=== PATIENT | female | born 1995 | race Caucasian/White ===

== ENCOUNTER → 2016-08-06 | Outpatient (CLI) | payer BC, OTHER | LOC: LABWHC1 11:11 | PROVIDERS: ATTEND Obstetrics & Gynecology | DX: Z34.90 Encounter for supervision of normal pregnancy, unspecified, unspecified trimester (principal); Z3A.00 Weeks of gestation of pregnancy not specified | CPT/HCPCS: 36415; 82950 ==

== ENCOUNTER 2016-10-05 15:00 | Outpatient (CLI) | payer BC, OTHER ==
[2016-10-05 15:57] VITALS: BP 136/68; PULSE 123; RESP 18; TEMP 96.5
[2016-10-05 15:57] LABS: Appearance,Urine Turbid (Clear); Bilirubin,Urine Negative (Negative); Calcium Oxalate Crystals,Urine Occasional /hpf; Glucose,Urine (UA) 3+ (Negative); Ketones,Urine Trace (Negative); Leukocyte Esterase,Urine Large (Negative); Mucus,Urine Few /hpf; Nitrite,Urine Negative (Negative); PH, Urine 5.5 (5.0-8.0); Particle Count 48622; Protein,Urine 1+ (Negative); RBC,Urine 12 /hpf (0-5); Specific Gravity,Urine 1.025 (1.001-1.035); Squamous Epithelial Cell,Urine 47 /hpf (0-4); UA Billing (MACRO vs. MICRO) MICRO; Urobilinogen,Urine <2.0 mg/dL (<2.0); WBC,Urine >182 /hpf (0-5)
== END 2016-10-05 17:05 | disposition home or self-care (01) ==
LOC: FBPOP 15:00
PROVIDERS: ATTEND Obstetrics & Gynecology
DX: O23.43 Unspecified infection of urinary tract in pregnancy, third trimester (principal); Z3A.35 35 weeks gestation of pregnancy
CPT/HCPCS: 59025; 81001; 87086; 99213

== ENCOUNTER 2016-10-18 20:05 | Outpatient (CLI) | payer BC, OTHER ==
[2016-10-18 20:51] VITALS: BP 134/79; PULSE 100; RESP 16; TEMP 96.1
== END 2016-10-18 20:40 | disposition home or self-care (01) ==
LOC: FBPOP 20:05
PROVIDERS: ATTEND Obstetrics & Gynecology
DX: O36.8130 Decreased fetal movements, third trimester, not applicable or unspecified (principal); Z3A.37 37 weeks gestation of pregnancy
CPT/HCPCS: 59025; 99213

== ENCOUNTER 2016-10-21 12:30 | Outpatient (CLI) | payer BC, OTHER ==
[2016-10-21] MEDS ORDERED: LACTATED RINGERS 1,000 ML IV SCH (14:30)
[2016-10-21 15:09] LABS: Appearance,Urine Cloudy (Clear); Bacteria,Urine Rare /hpf; Bilirubin,Urine Negative (Negative); Glucose,Urine (UA) Negative (Negative); Ketones,Urine Negative (Negative); Leukocyte Esterase,Urine Large (Negative); Mucus,Urine Few /hpf; Nitrite,Urine Negative (Negative); Particle Count 9680; Protein,Urine Trace (Negative); RBC,Urine <1 /hpf (0-5); Specific Gravity,Urine 1.011 (1.001-1.035); Squamous Epithelial Cell,Urine 4 /hpf (0-4); UA Billing (MACRO vs. MICRO) MICRO; WBC,Urine 16 /hpf (0-5)
== END 2016-10-21 15:40 | disposition home or self-care (01) ==
LOC: FBPOP 12:30
PROVIDERS: ATTEND Obstetrics & Gynecology
DX: O26.93 Pregnancy related conditions, unspecified, third trimester (principal); Z3A.37 37 weeks gestation of pregnancy
CPT/HCPCS: 59025; 81001; 84450; 84460; 84550; 85025; 87086; 96360; 96361; 99215

== ENCOUNTER → 2016-10-22 | Outpatient (CLI) | payer BC, OTHER | LOC: LABWHC1 16:32 → EDSTATUS 16:34 | PROVIDERS: ATTEND Obstetrics & Gynecology | DX: O10.011 Pre-existing essential hypertension complicating pregnancy, first trimester (principal); Z3A.00 Weeks of gestation of pregnancy not specified | CPT/HCPCS: 36415; 81050; 82575; 84156 ==

== ENCOUNTER → 2016-10-25 | Outpatient (CLI) | payer BC, OTHER | END | disposition home or self-care (01) | LOC: LABWHC1 17:16 | PROVIDERS: ATTEND Obstetrics & Gynecology | DX: O26.899 Other specified pregnancy related conditions, unspecified trimester (principal); Z3A.00 Weeks of gestation of pregnancy not specified | CPT/HCPCS: 36415; 82239 ==

== ENCOUNTER 2016-10-28 10:28 | Inpatient (IN) | payer BC, OTHER ==
[2016-10-28] MEDS ORDERED: CARBOPROST TROMETHAMINE 250 MCG/ML 1 ML AMP IM PRN (10:37)
[2016-10-28] MEDS ORDERED: LIDOCAINE 1% (PF) 10 MG/ML (30 ML SDV) SQ PRN (10:37)
[2016-10-28] MEDS ORDERED: METHYLERGONOVINE 0.2 MG/ML 1 ML AMP IM PRN (10:37)
[2016-10-28] MEDS ORDERED: OXYTOCIN 10 UNIT/ML 1 ML VIAL IM PRN (10:37)
[2016-10-28] MEDS ORDERED: TERBUTALINE 1 MG/ML VIAL SQ PRN (10:37)
[2016-10-28 10:47] VITALS: BMI 30.9
[2016-10-28 10:56] LABS: Basophils # (A) 0.1 k/uL (0-0.2); Basophils % (A) 0 %; CH 27.6; CHCM 34.4; Eosinophils # (A) 0.2 k/uL (0-0.7); Eosinophils % (A) 1 %; HDW 4.25; HGB 11.3 gm/dL (11.4-16.0); Hypochromasia Slight; Luc # (Auto) 0.36; Luc % (Auto) 2; Lymphocytes % (A) 12 %; MCH 27.6 pg (25.0-35.0); MCHC 34.3 g/dL (31.0-37.0); MCV 80.5 fL (80.0-100.0); Mean Platelet Volume 7.7; Monocytes # (A) 0.9 k/uL (0-1.0); Monocytes % (A) 6 %; Neutrophils # (A) 12.7 k/uL (1.3-7.7); Neutrophils % (A) 78 %; Poikilocytosis Moderate; RBC 4.09 m/uL (3.80-5.40); RDW 13.8 % (11.5-15.5); WBC 16.2 k/uL (4.0-11.0); WBC (Perox) 16.94
[2016-10-28] MEDS: LACTATED RINGERS 1,000 ML IV SCH ×2 (10:58→16:38)
[2016-10-28 11:07] LABS: INR 0.9 (<1.1); Prothrombin Time 9.4 sec (9.0-12.0)
[2016-10-28 11:08] LABS: Uric Acid 3.2 mg/dL (3.7-7.4)
[2016-10-28] MEDS: OXYTOCIN 20 UNITS/1000 ML NS 1,000 ML IV SCH (11:09)
[2016-10-28 11:38] LABS: Appearance,Urine Cloudy (Clear); Bacteria,Urine Rare /hpf; Bilirubin,Urine Negative (Negative); Glucose,Urine (UA) 2+ (Negative); Ketones,Urine Negative (Negative); Leukocyte Esterase,Urine Moderate (Negative); Mucus,Urine Few /hpf; Nitrite,Urine Negative (Negative); Particle Count 8534; Protein,Urine 1+ (Negative); RBC,Urine 1 /hpf (0-5); Specific Gravity,Urine 1.018 (1.001-1.035); Squamous Epithelial Cell,Urine 4 /hpf (0-4); UA Billing (MACRO vs. MICRO) MICRO; Urobilinogen,Urine <2.0 mg/dL (<2.0); WBC,Urine 5 /hpf (0-5)
--- NOTE | 2016-10-28 12:17 | P.HPOB ---
History of Present Illness H&P Date: 10/28/16 Chief Complaint: Headache this morning, visual changes, decreased movement , itching al This is a 21-year-old white female 1 para 0 EDC 9 11/09/2016 at 38-2/7 weeks' gestation. Patient presented to the office today for her routine obstetrical visit, complaining of intense itching all over the body. I have scheduled her for fasting bile acids earlier in the week, blood drawn was performed the patient was not fasting. In addition, she had a headache this morning which is improved, she has visual changes, and overall is feeling nauseated and not well. She also reports decreased movement. Blood pressure in the office was 160/100, patient was sent for direct admission. Obstetrical history: Blood type is O+, rubella status immune, group B strep cultures negative. Hepatitis B surface antigen, HIV testing, VDRL, urine screen , gonorrhea and chlamydia cultures all negative. One hour Glucola elevated, 3 hour GTT within normal limits. Social history patient is single, she works at a local nursing facility. She is not a smoker. Past medical history is significant for ovarian cysts and kidney infection in the past. Past surgical history is negative. Current medications vitamins daily. ALLERGIES include doxycycline to which she reports emesis. On exam this is a pleasant white female, 5 foot 5 inches, 186 pounds, blood pressure on admission 143/87, pulse 109, patient is afebrile. The general physical exam reveals 1-2+ peripheral edema, 3+ reflexes. The chest is clear in all zhang. The cervix is 1 cm dilated, 50% effaced, anterior, moderate, -2 station, vertex. Artificial amniorrhexis reveals clear fluid. heart rate is consistent with reactive NST. Labs include normal liver function studies, 1+ protein, normal platelet count, PT and PTT. Impression: 38-2/7 weeks intrauterine , early preeclampsia. Cannot rule out cholestasis of . Plan: Oxytocin augmentation per hospital protocol. Epidural would be a staton choice 1 and if patient is agreeable. Most maternal and surveillance. Consider magnesium sulfate pending progress of labor, blood pressure at this time is 120/79. Anticipate normal spontaneous vaginal delivery. Review of Systems Constitutional: Reports as per HPI Past Medical History Additional Past Medical History / Comment(s): kidney infection, UTI History of Any Multi-Drug Resistant Organisms: None Reported Past Surgical History: No Surgical Hx Reported Past Anesthesia/Blood Transfusion Reactions: No Reported Reaction Past Psychological History: No Psychological Hx Reported Smoking Status: Never smoker Past Alcohol Use History: Occasional Past Drug Use History: None Reported - Past Family History Father Family Medical History: Hypertension Medications and Allergies Home Medications Medication Instructions Recorded Confirmed Type Sik-Yejg-Ipfib Acid 1 cap PO DAILY 05/13/16 10/21/16 History [-U Capsule (formulary)] Allergies Allergy/AdvReac Type Severity Reaction Status Date / Time No Known Allergies Allergy Verified 10/28/16 10:34 Exam - Vital Signs Vital signs: Vital Signs Temp Pulse Resp BP Pulse Ox 10/28/16 10:43 97.3 F L 109 H 16 143/87 98 Intake and Output 10/27/16 10/28/16 10/28/16 22:59 06:59 14:59 Other: Weight 84.368 kg Patient Weight 10/29/16 06:59 Weight 84.368 kg See dictated exam under HPI please Results Result Diagrams: 10/28/16 10:40 Abnormal Lab Results - Last 24 Hours (Table) 10/28/16 10/28/16 10/28/16 Range/Units 10:40 10:40 10:40 WBC 16.2 H (4.0-11.0) k/uL Hgb 11.3 L (11.4-16.0) gm/dL Hct 33.0 L (34.0-46.0) % Neutrophils # 12.7 H (1.3-7.7) k/uL APTT 21.0 L (22.0-30.0) sec Uric Acid 3.2 L (3.7-7.4) mg/dL Urine Appearance (Clear) Urine Protein (Negative) Urine Glucose (UA) (Negative) Urine Blood (Negative) Ur Leukocyte Esterase (Negative) Urine Bacteria (None) /hpf Urine Mucus (None) /hpf 10/28/16 Range/Units 11:00 WBC (4.0-11.0) k/uL Hgb (11.4-16.0) gm/dL Hct (34.0-46.0) % Neutrophils # (1.3-7.7) k/uL APTT (22.0-30.0) sec Uric Acid (3.7-7.4) mg/dL Urine Appearance Cloudy H (Clear) Urine Protein 1+ H (Negative) Urine Glucose (UA) 2+ H (Negative) Urine Blood Trace H (Negative) Ur Leukocyte Esterase Moderate H (Negative) Urine Bacteria Rare H (None) /hpf Urine Mucus Few H (None) /hpf Assessment and Plan Plan: Close maternal and surveillance. Consideration of magnesium sulfate pending clinical progress and blood pressure. Epidural to be placed when and if patient is agreeable. Anticipate normal spontaneous vaginal delivery. Oxytocin per hospital protocol. Time with Patient: Greater than 30
[2016-10-28] MEDS ORDERED: BUTORPHANOL 1 MG/ML 1 ML VIAL IV PRN (12:27)
[2016-10-28] MEDS ORDERED: BUPIVACAINE (PF) 0.25% 25 ML, fentaNYL (PF) 200 MCG in SODIUM CHLORIDE 0.9% 71 ML EPIDURAL ONE (15:30)
[2016-10-28] MEDS ORDERED: ePHEDrine 50 MG/ML 1 ML AMP ONE (16:06)
[2016-10-28] MEDS ORDERED: fentaNYL (PF) 50 MCG/ML 5 ML AMP ONE ×2 (16:06→21:46)
[2016-10-28] MEDS ORDERED: BUPIVACAINE (PF) 0.25% 30 ML VIAL ONE ×2 (16:06→21:46)
[2016-10-28] MEDS ORDERED: SODIUM CHLORIDE 0.9% 100 ML BAG ONE ×2 (16:06→21:46)
[2016-10-28] MEDS ORDERED: CITRIC ACID-SODIUM CITRATE 15 ML CUP PO ONE (21:26)
[2016-10-28] MEDS ORDERED: ceFAZolin 2 GM in SODIUM CHLORIDE 0.9% 100 ML IVPB ONE (21:26)
[2016-10-28] MEDS ORDERED: ESMOLOL 100 MG/10 ML VIAL ONE (21:46)
[2016-10-28] MEDS ORDERED: KETOROLAC 30 MG/ML 1 ML VIAL ONE (21:46)
[2016-10-28] MEDS ORDERED: OXYTOCIN 10 UNIT/ML 1 ML VIAL ONE (21:46)
[2016-10-28] MEDS ORDERED: SODIUM BICARB 8.4% 50 ML SYR (1 MEQ/ML) ONE (21:46)
[2016-10-28] MEDS ORDERED: ONDANSETRON 4 MG/2 ML VIAL ONE (21:46)
[2016-10-28] MEDS ORDERED: diphenhydrAMINE 25 MG CAP PO PRN (22:37)
[2016-10-28] MEDS ORDERED: ONDANSETRON 4 MG/2 ML VIAL IVP PRN (22:37)
[2016-10-28] MEDS ORDERED: NALOXONE 0.4 MG/ML 1 ML VIAL IV PRN (22:37)
[2016-10-28] MEDS ORDERED: IBUPROFEN 600 MG TAB PO PRN (22:37)
[2016-10-28] MEDS ORDERED: diphenhydrAMINE 50 MG CAP PO PRN (22:37)
[2016-10-28] MEDS ORDERED: ZOLPIDEM 5 MG TAB PO PRN (22:37)
[2016-10-28] MEDS ORDERED: diphenhydrAMINE 50 MG/ML 1 ML VIAL IVP PRN ×2 (22:37)
[2016-10-28] MEDS ORDERED: KETOROLAC 30 MG/ML 1 ML VIAL IVP PRN (22:37)
[2016-10-28] MEDS ORDERED: METOCLOPRAMIDE 5 MG/ML 2 ML VIAL IVP PRN (22:37)
[2016-10-28] MEDS ORDERED: ACETAMINOPHEN TAB 325 MG TAB PO PRN (22:37)
--- NOTE | 2016-10-28 22:37 | P.OP ---
Date of Procedure: 10/28/16 Preoperative Diagnosis: Arrest of dilatation and descent Postoperative Diagnosis: Right occiput transverse position Procedure(s) Performed: Primary low transverse section Implants: Anesthesia: epidural Surgeon: Ct Grover [employer] [address] Sql Developer #1: Seth Novoa Estimated Blood Loss (ml): 600 IV fluids (ml): 600 Urine output (ml): 300 Pathology: other (Placenta) Condition: stable Disposition: PACU Indications for Procedure: Patient progressed through labor up to 3 cm dilatation. Station was quite high , asynclitism was suspected. Patient declined further labor and requested C- section. heart tones were reassuring. Operative Findings: Right occiput transverse position, liveborn male infant, 8 lbs. 4 oz. or 3750 g Description of Procedure: Patient is brought to the operating suite where the previously placed epidural was topped off per the anesthesia staff. She's placed in the dorsal supine position with left lateral uterine displacement. The abdomen was prepped and draped in the usual sterile fashion. 2 g of Ancef were given. The appropriate timeout was performed to assure proper patient and procedural identification. The analgesia was checked and noted to be adequate. A low transverse skin incision was made and this was carried down to the subcutaneous tissue that was approximately 2 cm in depth. The fascia is isolated, scored and extended bilaterally with curved Geiger scissors. The peritoneum is next identified and incised, there is no bowel or bladder involvement. The bladder blade is placed over the dome of the bladder. A low transverse uterine incision is made in this is carried down through the myometrium into the endometrial cavity. It is extended with blunt dissection. The infant is delivered in the right occiput transverse position. There is no nuchal cord noted. The oropharynx, nasopharynx and external nares were all bulb suctioned on the abdomen. Patient is officially delivered of a liveborn male at 2200 hours. The infant is handed to waiting nurses for evaluation where scores of 8 and 9 at one and 5 minutes respectively are given. Infant weighed 3750 g or 8 lbs. 4 oz. The placenta was delivered manually, it was inspected and noted to be intact with trivascular cord. The uterus is then externalized. The edges of the incision are grasped with Hylton clamps. The uterus is swept clean with a sterile sponge to avoid any retained products of conception. The uterus is closed in a two-step fashion , first layer running locking, second layer imbricated. Excellent reapproximation is noted. The abdomen is then suctioned with suction on guard. The uterus is gently placed back into the abdominal cavity. Bilateral gutters are inspected and cleaned. The uterus is once again noted to be hemostatically intact. Please note that bilateral tubes and ovaries are normal to inspection, no uterine defects or fibroids are noted. The peritoneum was allowed to close by secondary intention. The fascia is closed in a running stitch using 0 Vicryl suture with over ligation in the midline. Subcutaneous tissue is irrigated, noted to be clean and dry. It is reapproximated with 3-0 Vicryl in a running fashion. 4-0 undyed Vicryl issues for final skin closure. Steri-Strips and Mastisol are applied to the wound. Dressing is applied. Uterus is massaged. All sponge needle and enhancement counts are correct at the end of the procedure. Patient is brought back to the recovery room in very good condition with stable vital signs including blood pressure 110/64, pulse 102, 98% O2 saturation. Patient is requesting circumcision for her son.
[2016-10-28] MEDS: HYDROmorphone PCA 5 MG/25 ML SYRINGE IV PRN (22:55)
[2016-10-29] MEDS: LACTATED RINGERS 1,000 ML IV SCH ×3 (01:09→22:28)
--- NOTE | 2016-10-29 07:38 | P.PN ---
Subjective Principal diagnosis: Postoperative day #1 Objective - Vital Signs Vital signs: Vital Signs Temp 97.9 F 10/29/16 03:29 Pulse 84 10/29/16 03:29 Resp 14 10/29/16 03:29 BP 116/61 10/29/16 03:29 Pulse Ox 100 10/29/16 03:29 Intake & Output 10/28/16 10/29/16 10/29/16 18:59 06:59 18:59 Intake Total 2000 Output Total 1250 Balance 750 Weight 84.368 kg Intake: IV 600 Intake, IV Titration 1400 Amount Lactated Ringers 1,000 ml 1000 @ 125 mls/hr IV .Q8H SHUN Rx#:[id number] Oxytocin 20 Units/1000 ml 400 Ns 1,000 ml @ 1 MILLIUNIT/MIN 3 mls/hr IV .Q24H SHUN Rx#:[id number] Output: Urine 650 Uretheral (Fletcher) 200 Estimated Blood Loss 600 Other: Voiding Method Indwelling Catheter - Constitutional General appearance: Present: average body habitus, cooperative - EENT Eyes: Present: PERRLA ENT: Present: hearing grossly normal - Respiratory Respiratory: bilateral: CTA - Cardiovascular Rhythm: regular - Gastrointestinal Gastrointestinal Comment(s): Fundus firm, midline, symmetric, 18 week size. Incision is clean and dry, well approximated, intact. General gastrointestinal: Present: normal bowel sounds - Integumentary Integumentary: Present: normal - Neurologic Neurologic: Present: CNII-XII intact - Musculoskeletal Musculoskeletal: Present: gait normal - Psychiatric Psychiatric: Present: A&O x's 3, appropriate affect, intact judgment & insight - Labs CBC & Chem 7: 10/28/16 10:40 Labs: Abnormal Lab Results - Last 24 Hours (Table) 10/28/16 10/28/16 10/28/16 Range/Units 10:40 10:40 10:40 WBC 16.2 H (4.0-11.0) k/uL Hgb 11.3 L (11.4-16.0) gm/dL Hct 33.0 L (34.0-46.0) % Neutrophils # 12.7 H (1.3-7.7) k/uL APTT 21.0 L (22.0-30.0) sec Uric Acid 3.2 L (3.7-7.4) mg/dL Urine Appearance (Clear) Urine Protein (Negative) Urine Glucose (UA) (Negative) Urine Blood (Negative) Ur Leukocyte Esterase (Negative) Urine Bacteria (None) /hpf Urine Mucus (None) /hpf 10/28/16 Range/Units 11:00 WBC (4.0-11.0) k/uL Hgb (11.4-16.0) gm/dL Hct (34.0-46.0) % Neutrophils # (1.3-7.7) k/uL APTT (22.0-30.0) sec Uric Acid (3.7-7.4) mg/dL Urine Appearance Cloudy H (Clear) Urine Protein 1+ H (Negative) Urine Glucose (UA) 2+ H (Negative) Urine Blood Trace H (Negative) Ur Leukocyte Esterase Moderate H (Negative) Urine Bacteria Rare H (None) /hpf Urine Mucus Few H (None) /hpf Assessment and Plan Plan: Continue postoperative care. Circumcision on her now. Possible discharge home tomorrow. Time with Patient: Less than 30
[2016-10-29 07:43] LABS: Basophils % (A) 0 %; CH 27.5; CHCM 33.9; Eosinophils # (A) 0.1 k/uL (0-0.7); Eosinophils % (A) 0 %; HCT 25.2 % (34.0-46.0); Hypochromasia Slight; Luc # (Auto) 0.28; Luc % (Auto) 2; Lymphocytes # (A) 1.5 k/uL (1.0-4.8); Lymphocytes % (A) 8 %; MCH 27.5 pg (25.0-35.0); MCHC 33.9 g/dL (31.0-37.0); MCV 81.2 fL (80.0-100.0); Monocytes # (A) 0.9 k/uL (0-1.0); Monocytes % (A) 5 %; Neutrophils # (A) 15.3 k/uL (1.3-7.7); Neutrophils % (A) 85 %; Poikilocytosis Moderate; RBC 3.11 m/uL (3.80-5.40); RDW 13.9 % (11.5-15.5); WBC 18.1 k/uL (4.0-11.0); WBC (Perox) 19.62
[2016-10-29 07:45] LABS: HGB 8.6 gm/dL (11.4-16.0)
[2016-10-29] MEDS: HYDROmorphone PCA 5 MG/25 ML SYRINGE IV PRN (08:00)
[2016-10-29] MEDS: SENNOSIDES-DOCUSATE SODIUM 1 EACH TAB PO SCH ×2 (11:01→20:23)
[2016-10-29] MEDS: Acetaminophen-Codeine 300-30mg TAB PO PRN ×2 (16:25→20:22)
[2016-10-29] MEDS: OXYTOCIN 20 UNITS/1000 ML NS 1,000 ML IV SCH (22:27)
[2016-10-30] MEDS: Acetaminophen-Codeine 300-30mg TAB PO PRN ×3 (01:11→11:11)
[2016-10-30 08:15] VITALS: BP 133/88; PULSE 94; RESP 16; TEMP 98.2
[2016-10-30] MEDS: SENNOSIDES-DOCUSATE SODIUM 1 EACH TAB PO SCH (08:16)
--- NOTE | 2016-10-30 09:40 | P.DS ---
Providers Date of admission: 10/28/16 10:28 Expected date of discharge: 10/30/16 Attending physician: Ct [facility] Course: This is a 21-year-old white female 1 para 0 EDC 11/09/2016 at 38-2/7 weeks' gestation. Patient presented to the hospital from my office with an initial blood pressure of 160/100. She complained of headache, visual changes, decreased movement, and overall feeling of malaise. Please see my dictated history and physical for details. was essentially unremarkable, rubella status immune, group B strep cultures negative, blood type O positive. She was admitted, artificial amniorrhexis revealed clear fluid, and oxytocin augmentation was started. Patient had arrest of dilatation and descent and decision was made for primary low transverse section after approximately 12-14 hours of hard labor. Epidural had been placed per her request. Option was given for rest through the night with restart of oxytocin in the morning which the patient declined. She underwent a low-transverse section and gave to a liveborn male with scores of 8 and 9 at one and 5 minutes respectively. weighed 3750 g or 8 lbs. 4 oz. Patient's blood pressure stabilized nicely after the epidural, magnesium sulfate was not deemed necessary. Please see my dictated operative note for details. The patient has done well in the postoperative period. Blood pressures have normalized, 110 to 120s over 70s. She denies headache, visual changes or right upper quadrant pain. Fundus is firm and in the midline, symmetric and 18 week size. Incision is clean and dry, intact, Steri-Strips applied over subcuticular stitch. Extremities reveal 1+ edema. Reflexes have normalized at 2+. has been circumcised. Breast-feeding is going well. Patient is being discharged home at this point in very good condition. She is reminded to call me with any fevers shakes or chills, foul smelling or copious lochia, with the passage of large blood clots, with any difficulties breast- feeding, with any pain not alleviated by Advil at home, or indeed with any concerns. She will use Advil, 2 pills every 8-12 hours as needed for pain. No intercourse, we've reviewed briefly the options for contraception which she will consider. She will continue taking her vitamin daily. No driving for 2 weeks, no heavy lifting, no intercourse tampons or douching. will follow-up with airplane fueler as recommended. Patient Condition at Discharge: Good Plan - Discharge Summary New Discharge Prescriptions: No Action Irw-Mjlz-Jyjer Acid [-U Capsule (formulary)] 1 cap PO DAILY Discharge Medication List Aor-Zgqh-Jpxzk Acid [-U Capsule (formulary)] 1 cap PO DAILY [History] Follow up Appointment(s)/Referral(s): Ct Grover MD [STAFF PHYSICIAN] - 2 Weeks Discharge Disposition: HOME SELF-CARE
== END 2016-10-30 11:45 | disposition home or self-care (01) | DRG 766 ==
LOC: 4FBP 10:28
PROVIDERS: ADMIT Obstetrics & Gynecology; ATTEND Obstetrics & Gynecology
PROC: 10907ZC Drainage of Amniotic Fluid, Therapeutic from Products of Conception, Via Natural or Artificial Opening (ICD-10-PCS; 2016-10-28)
PROC: 3E033VJ Introduction of Other Hormone into Peripheral Vein, Percutaneous Approach (ICD-10-PCS; 2016-10-28)
PROC: 3E0S3NZ Introduction of Analgesics, Hypnotics, Sedatives into Epidural Space, Percutaneous Approach (ICD-10-PCS; 2016-10-28)
PROC: 10D00Z1 Extraction of Products of Conception, Low, Open Approach (ICD-10-PCS; principal; 2016-10-28 22:00)
DX: O14.94 Unspecified pre-eclampsia, complicating childbirth (principal); O32.8XX0 Maternal care for other malpresentation of fetus, not applicable or unspecified; O62.1 Secondary uterine inertia; O61.0 Failed medical induction of labor; O62.0 Primary inadequate contractions; O36.8130 Decreased fetal movements, third trimester, not applicable or unspecified; Z3A.38 38 weeks gestation of pregnancy; Z82.49 Family history of ischemic heart disease and other diseases of the circulatory system; Z37.0 Single live birth; Z88.1 Allergy status to other antibiotic agents; Z87.440 Personal history of urinary (tract) infections; Z86.19 Personal history of other infectious and parasitic diseases; Z87.448 Personal history of other diseases of urinary system; Z87.42 Personal history of other diseases of the female genital tract
CPT/HCPCS: 81001; 84450; 84460; 84550; 85025; 85610; 85730; 86850; 86900; 86901; 88307

== ENCOUNTER 2016-11-24 17:17 | Emergency (ER) | payer BC, OTHER ==
[2016-11-24 17:29] VITALS: BP 134/72; PULSE 78; RESP 20; TEMP 98
--- NOTE | 2016-11-24 18:17 | ED ---
Recheck HPI - General Chief Complaint: Recheck/Abnormal Lab/Rx Stated Complaint: post op infection Time Seen by Provider: 11/24/16 17:50 Source: patient, RN notes reviewed Mode of arrival: ambulatory Limitations: no limitations - History of Present Illness Initial Comments: Patient is a 21-year-old female presents to the emergency room for reevaluation of postop incision. Patient states that she had a section about a month ago. Patient states that her last visit with her MEDICAL ESTHETICIAN was on 11/15/16. Patient states that today she noticed that the wound slightly opened and draining small amounts of white fluid. Patient denies any pain. Patient denies fevers or chills. Patient denies nausea or vomiting. Patient states that her told her to come in to have the area evaluated. Patient denies any specific injury or trauma to her abdomen recently. - Related Data Home Medications Medication Instructions Recorded Confirmed Cdj-Cusm-Oeluh Acid 1 cap PO DAILY 05/13/16 11/24/16 [-U Capsule (formulary)] Allergies Allergy/AdvReac Type Severity Reaction Status Date / Time No Known Allergies Allergy Verified 11/24/16 18:09 Review of Systems ROS Statement: Those systems with pertinent positive or pertinent negative responses have been documented in the HPI. ROS Other: All systems not noted in ROS Statement are negative. Past Medical History Additional Past Medical History / Comment(s): kidney infection, UTI History of Any Multi-Drug Resistant Organisms: None Reported Past Surgical History: Section Past Anesthesia/Blood Transfusion Reactions: No Reported Reaction Past Psychological History: No Psychological Hx Reported Smoking Status: Never smoker Past Alcohol Use History: Occasional Past Drug Use History: None Reported - Past Family History Father Family Medical History: Hypertension General Exam - General Exam Comments Initial Comments: Sitting in exam room, no acute distress. Limitations: no limitations General appearance: alert, in no apparent distress Head exam: Present: atraumatic, normocephalic, normal inspection Eye exam: Present: normal appearance ENT exam: Present: normal exam Neck exam: Present: normal inspection Respiratory exam: Present: normal lung sounds bilaterally. Absent: respiratory distress Cardiovascular Exam: Present: regular rate, normal rhythm, normal heart sounds GI/Abdominal exam: Present: soft, other (8 inch healing insicion from , small amount of serous fluid from mid incision site. No surrounding erythema noted. ). Absent: distended, tenderness, guarding, rebound, rigid Extremities exam: Present: normal inspection Back exam: Present: normal inspection Neurological exam: Present: alert, oriented X3, CN II-XII intact, normal gait Psychiatric exam: Present: normal affect, normal mood Skin exam: Present: warm, dry, intact, normal color. Absent: rash Course Vital Signs 11/24/16 17:27 Temperature 98.0 F Pulse Rate 78 Respiratory 20 Rate Blood Pressure 134/72 O2 Sat by Pulse 100 Oximetry Medical Decision Making - Medical Decision Making Patient is a 21-year-old female presents to the emergency room for evaluation of postop incision. Patient states she noticed that a few areas of incision is opened and small amounts of white fluid draining. Patient denies any pain, fevers, chills. Patient states her MEDICAL ESTHETICIAN is Dr. Grover. no signs of infection noted at the incision site. Pelvis serous fluid noted draining. Culture pending. Case discussed with Dr. Ojeda who also evaluated patient. Patient advised to follow-up with Dr. Grover. Patient states she understands everything that was discussed with her. Return parameters discussed. Disposition Clinical Impression: Encounter for wound re-check Disposition: HOME SELF-CARE Condition: Good Instructions: Acute Wound Care (ED), Wound Healing and Your Diet (ED) Additional Instructions: Clean area with antibacterial soap and water. Please follow-up with Dr. Grover tomorrow for reevaluation. If any new symptom arises, symptoms worsen or fever develops, return to ER as soon as possible. Referrals: Behzad Samson MD [Primary Care Provider] - 1-[address] Gro[address] MD [STAFF PHYSICIAN] - 1-2 days Time of Disposition: 18:42
== END 2016-11-24 18:54 | disposition home or self-care (01) ==
LOC: EC 17:17
DX: Z48.816 Encounter for surgical aftercare following surgery on the genitourinary system (principal)
CPT/HCPCS: 87070; 87077; 87186; 87205; 99283

== ENCOUNTER 2017-08-09 15:46 | Emergency (ER) | payer BC, OTHER ==
[2017-08-09] MEDS ORDERED: ONDANSETRON 4 MG/2 ML VIAL IVP STA (16:16)
[2017-08-09] MEDS ORDERED: SODIUM CHLORIDE 0.9% 1,000 ML IV ONE (16:17)
[2017-08-09] MEDS ORDERED: SODIUM CHLORIDE 0.9% 1,000 ML IV SCH (16:30)
[2017-08-09 16:38] LABS: Appearance,Urine Clear (Clear); Bilirubin,Urine Negative (Negative); Blood,Urine Small (Negative); Color,Urine Yellow; Glucose,Urine (UA) Negative (Negative); Ketones,Urine Negative (Negative); Leukocyte Esterase,Urine Negative (Negative); Mucus,Urine Many /hpf; Nitrite,Urine Negative (Negative); Protein,Urine 1+ (Negative); RBC,Urine 3 /hpf (0-5); Specific Gravity,Urine 1.028 (1.001-1.035); Squamous Epithelial Cell,Urine 2 /hpf (0-4); WBC,Urine 1 /hpf (0-5)
[2017-08-09 16:47] LABS: Basophils # (A) 0.1 k/uL (0-0.2); Basophils % (A) 1 %; Eosinophils # (A) 0.4 k/uL (0-0.7); Eosinophils % (A) 5 %; HCT 41.2 % (34.0-46.0); HGB 13.9 gm/dL (11.4-16.0); Lymphocytes # (A) 1.2 k/uL (1.0-4.8); Lymphocytes % (A) 15 %; MCH 25.6 pg (25.0-35.0); MCHC 33.8 g/dL (31.0-37.0); MCV 75.8 fL (80.0-100.0); Mean Platelet Volume 7.2; Microcytosis Slight; Monocytes # (A) 0.4 k/uL (0-1.0); Monocytes % (A) 5 %; Neutrophils # (A) 5.8 k/uL (1.3-7.7); Neutrophils % (A) 73 %; Platelet Count 318 k/uL (150-450); RBC 5.44 m/uL (3.80-5.40); RDW 14.4 % (11.5-15.5)
[2017-08-09] MEDS ORDERED: KETOROLAC 30 MG/ML 1 ML VIAL IVP STA (16:53)
[2017-08-09 17:02] LABS: ALT 33 U/L (9-52); AST 31 U/L (14-36); Albumin 4.1 g/dL (3.5-5.0); Alkaline Phosphatase 102 U/L (38-126); Anion Gap 12 mmol/L; Blood Urea Nitrogen 10 mg/dL (7-17); Calcium 9.2 mg/dL (8.4-10.2); Carbon Dioxide 24 mmol/L (22-30); Chloride 106 mmol/L (98-107); Glucose 91 mg/dL (74-99); Potassium 3.8 mmol/L (3.5-5.1); Sodium 142 mmol/L (137-145); Total Bilirubin 0.7 mg/dL (0.2-1.3); Total Protein 7.1 g/dL (6.3-8.2)
--- NOTE | 2017-08-09 17:06 | ED ---
Female Urogenital HPI - General Chief complaint: Vaginal Bleeding Stated complaint: Vaginal Bleeding Time Seen by Provider: 08/09/17 16:03 Source: patient, RN notes reviewed, old records reviewed Mode of arrival: ambulatory Limitations: no limitations - History of Present Illness Initial comments: This is a 21-year-old female presents emergency Department chief complaint of increased vaginal bleeding for the past day. She 2 days of spotting prior to this. Patient states that she's never had this heavy menstrual cycle. She also reports that she's had some nausea and feels generally ill. Patient states that she has had one episode of vomiting prior to arriving to emergency department. She did have a beep proximally 9 months ago. Patient states that she has been having a productive soft. She does question if she could've an a miscarriage. Patient states that she's never had this heavy bleeding. She states that she was going through one tampon an hour prior to arrival. Last Menstrual Period: 07/15/17 - Related Data Home Medications Medication Instructions Recorded Confirmed Ibuprofen [Motrin Ib] 400 mg PO Q6H PRN 08/09/17 08/09/17 Previous Rx's Medication Instructions Recorded Ibuprofen [Motrin] 600 mg PO Q8HR PRN #30 tab 08/09/17 Ondansetron Odt [Zofran Odt] 4 mg PO Q12HR PRN #12 tab 08/09/17 Allergies Allergy/AdvReac Type Severity Reaction Status Date / Time No Known Allergies Allergy Verified 08/09/17 16:28 Review of Systems ROS Statement: Those systems with pertinent positive or pertinent negative responses have been documented in the HPI. ROS Other: All systems not noted in ROS Statement are negative. Past Medical History Additional Past Medical History / Comment(s): kidney infection, UTI History of Any Multi-Drug Resistant Organisms: None Reported Past Surgical History: Section Past Anesthesia/Blood Transfusion Reactions: No Reported Reaction Past Psychological History: No Psychological Hx Reported Smoking Status: Never smoker Past Alcohol Use History: Occasional Past Drug Use History: None Reported - Past Family History Father Family Medical History: Hypertension General Exam - General Exam Comments Initial Comments: This is a 21-year-old female. No acute distress. Limitations: no limitations General appearance: alert, in no apparent distress Head exam: Present: atraumatic, normocephalic, normal inspection Eye exam: Present: normal appearance, PERRL, EOMI. Absent: scleral icterus, conjunctival injection, periorbital swelling ENT exam: Present: normal exam, mucous membranes moist Neck exam: Present: normal inspection. Absent: tenderness, meningismus, lymphadenopathy Respiratory exam: Present: normal lung sounds bilaterally. Absent: respiratory distress, wheezes, rales, rhonchi, stridor Cardiovascular Exam: Present: regular rate, normal rhythm, normal heart sounds. Absent: systolic murmur, diastolic murmur, rubs, gallop, clicks GI/Abdominal exam: Present: soft, tenderness (Suprapubic tenderness. Evidence of section scar.), normal bowel sounds. Absent: distended, guarding, rebound, rigid External exam: Present: normal external exam Speculum exam: Present: vaginal bleeding (no clots or significant bleeding noted. ). Absent: normal speculum exam Extremities exam: Present: normal inspection, full ROM, normal capillary refill. Absent: tenderness, pedal edema, joint swelling, calf tenderness Back exam: Present: normal inspection Neurological exam: Present: alert, oriented X3, CN II-XII intact Psychiatric exam: Present: normal affect, normal mood Skin exam: Present: warm, dry, intact, normal color. Absent: rash Course Vital Signs 08/09/17 08/09/17 15:59 18:06 Temperature 98.3 F 98.2 F Pulse Rate 103 H 99 Respiratory 20 18 Rate Blood Pressure 148/74 132/75 O2 Sat by Pulse 98 99 Oximetry Medical Decision Making - Medical Decision Making This is a 21-year-old female presents emergency Department chief complaint of increased vaginal bleeding for the past day. She 2 days of spotting prior to this. Patient states that she's never had this heavy menstrual cycle. She also reports that she's had some nausea and feels generally ill. Patient has suprapubic tenderness. Patient given IV fluids and labs obtained. CBC isnormal. Normal UA. Patient is not . Patient has bleeding noted during speculum exam, no clots. Patient given nausea medication and toradol. US shows normal pelvis, normal adnexa. Patient informed of Tx for dysfunctional uterine bleeding. Discussed follow up with HEALTH DATA ADMINISTRATOR. Patient is following up with Dr. Grover. All questions answered and return parameters discussed. - Lab Data Result diagrams: 08/09/17 16:37 08/09/17 16:37 Lab Results 08/09/17 08/09/17 08/09/17 Range/Units 16:21 16:21 16:37 WBC 8.0 (4.0-11.0) k/uL RBC 5.44 H (3.80-5.40) m/uL Hgb 13.9 (11.4-16.0) gm/dL Hct 41.2 (34.0-46.0) % MCV 75.8 L (80.0-100.0) fL MCH 25.6 (25.0-35.0) pg MCHC 33.8 (31.0-37.0) g/dL RDW 14.4 (11.5-15.5) % Plt Count 318 (150-450) k/uL Neutrophils % 73 % Lymphocytes % 15 % Monocytes % 5 % Eosinophils % 5 % Basophils % 1 % Neutrophils # 5.8 (1.3-7.7) k/uL Lymphocytes # 1.2 (1.0-4.8) k/uL Monocytes # 0.4 (0-1.0) k/uL Eosinophils # 0.4 (0-0.7) k/uL Basophils # 0.1 (0-0.2) k/uL Microcytosis Slight Sodium (137-145) mmol/L Potassium (3.5-5.1) mmol/L Chloride (98-107) mmol/L Carbon Dioxide (22-30) mmol/L Anion Gap mmol/L BUN (7-17) mg/dL Creatinine (0.52-1.04) mg/dL Est GFR (CKD-EPI)AfAm (>60 ml/min/1.73 sqM) Est GFR (CKD-EPI)NonAf (>60 ml/min/1.73 sqM) Glucose (74-99) mg/dL Calcium (8.4-10.2) mg/dL Total Bilirubin (0.2-1.3) mg/dL AST (14-36) U/L ALT (9-52) U/L Alkaline Phosphatase (38-126) U/L Total Protein (6.3-8.2) g/dL Albumin (3.5-5.0) g/dL Urine Color Yellow Urine Appearance Clear (Clear) Urine pH 7.0 (5.0-8.0) Ur Specific [place] 1.028 (1.001-1.035) Urine Protein 1+ H (Negative) Urine Glucose (UA) Negative (Negative) Urine Ketones Negative (Negative) Urine Blood Small H (Negative) Urine Nitrite Negative (Negative) Urine Bilirubin Negative (Negative) Urine Urobilinogen 4.0 (<2.0) mg/dL Ur Leukocyte Esterase Negative (Negative) Urine RBC 3 (0-5) /hpf Urine WBC 1 (0-5) /hpf Ur Squamous Epith Cells 2 (0-4) /hpf Urine Mucus Many H (None) /hpf Urine HCG, Qual Not Detected (Not Detectd) 08/09/17 Range/Units 16:37 WBC (4.0-11.0) k/uL RBC (3.80-5.40) m/uL Hgb (11.4-16.0) gm/dL Hct (34.0-46.0) % MCV (80.0-100.0) fL MCH (25.0-35.0) pg MCHC (31.0-37.0) g/dL RDW (11.5-15.5) % Plt Count (150-450) k/uL Neutrophils % % Lymphocytes % % Monocytes % % Eosinophils % % Basophils % % Neutrophils # (1.3-7.7) k/uL Lymphocytes # (1.0-4.8) k/uL Monocytes # (0-1.0) k/uL Eosinophils # (0-0.7) k/uL Basophils # (0-0.2) k/uL Microcytosis Sodium 142 (137-145) mmol/L Potassium 3.8 (3.5-5.1) mmol/L Chloride 106 (98-107) mmol/L Carbon Dioxide 24 (22-30) mmol/L Anion Gap 12 mmol/L BUN 10 (7-17) mg/dL Creatinine 0.45 L (0.52-1.04) mg/dL Est GFR (CKD-EPI)AfAm >90 (>60 ml/min/1.73 sqM) Est GFR (CKD-EPI)NonAf >90 (>60 ml/min/1.73 sqM) Glucose 91 (74-99) mg/dL Calcium 9.2 (8.4-10.2) mg/dL Total Bilirubin 0.7 (0.2-1.3) mg/dL AST 31 (14-36) U/L ALT 33 (9-52) U/L Alkaline Phosphatase 102 (38-126) U/L Total Protein 7.1 (6.3-8.2) g/dL Albumin 4.1 (3.5-5.0) g/dL Urine Color Urine Appearance (Clear) Urine pH (5.0-8.0) Ur Specific [place] (1.001-1.035) Urine Protein (Negative) Urine Glucose (UA) (Negative) Urine Ketones (Negative) Urine Blood (Negative) Urine Nitrite (Negative) Urine Bilirubin (Negative) Urine Urobilinogen (<2.0) mg/dL Ur Leukocyte Esterase (Negative) Urine RBC (0-5) /hpf Urine WBC (0-5) /hpf Ur Squamous Epith Cells (0-4) /hpf Urine Mucus (None) /hpf Urine HCG, Qual (Not Detectd) - Radiology Data Radiology results: report reviewed Unremarkable pelvic ultrasound with no evidence of endometrial thickening. Adnexa appear normal. Disposition Clinical Impression: Dysfunctional uterine bleeding, Nausea Disposition: HOME SELF-CARE Condition: Good Instructions: Dysfunctional Uterine Bleeding (ED) Additional Instructions: Patient has a follow-up with primary care physician in next 1-2 days. Take the pain medication as prescribed. Clear liquids. Also follow-up with AUTO [employer]OR Dr. Park within the next week if symptoms are continuing to persist. Prescriptions: Ibuprofen [Motrin] 600 mg PO Q8HR PRN #30 tab PRN Reason: Pain Ondansetron Odt [Zofran Odt] 4 mg PO Q12HR PRN #12 tab PRN Reason: Nausea Referrals: Behzad Samson MD [Primary Care Provider] - 1-2 days Time of Disposition: 17:44
--- NOTE | 2017-08-09 17:40 | US ---
EXAMINATION TYPE: US transvaginal DATE OF EXAM: 08/09/2017 COMPARISON: NONE CLINICAL HISTORY: Pain. Heavy bleeding TECHNIQUE: Transvaginal (TV). Date of LMP: 08/07/2017 EXAM MEASUREMENTS: Uterus: 6.9 x 3.3 x 3.6 cm Endometrial Stripe: 0.7 cm Right Ovary: 3.0 x 1.5 x 2.2 cm Left Ovary: 3.0 x 1.8 x 2.5 cm 1. Uterus: Anteverted wnl 2. Endometrium: wnl 3. Right Ovary: wnl 4. Left Ovary: wnl Spectral, color and waveform doppler imaging shows good arterial and venous flow within the ovaries ; there is no evidence for ovarian torsion. 5. Bilateral Adnexa: wnl 6. Posterior cul-de-sac: wnl Exam appears wnl. Good bilateral doppler flow seen in ovaries. IMPRESSION: Unremarkable pelvic ultrasound with no evidence of endometrial thickening definitely no
[2017-08-09 18:07] VITALS: BP 132/75; PULSE 99; RESP 18; TEMP 98.2
== END 2017-08-09 18:28 | disposition home or self-care (01) ==
LOC: EC 15:46
DX: N93.8 Other specified abnormal uterine and vaginal bleeding (principal); R11.0 Nausea
CPT/HCPCS: 36415; 80053; 85025; 81001; 81025; 93975; 76830; 99284; 96374; 96375; 96361; J2405; J1885

== ENCOUNTER 2023-04-10 23:03 | Outpatient (CLI) | payer OTHER ==
[2023-04-10 23:33] LABS: Appearance,Urine Clear (Clear); Bilirubin,Urine Negative (Negative); Blood,Urine Negative (Negative); Color,Urine Colorless; Glucose,Urine (UA) 1+ (Negative); Ketones,Urine Negative (Negative); Leukocyte Esterase,Urine Negative (Negative); Nitrite,Urine Negative (Negative); Protein,Urine Negative (Negative); Specific Gravity,Urine 1.019 (1.001-1.035); Urobilinogen,Urine <2.0 mg/dL (<2.0)
[2023-04-11] MEDS ORDERED: ACETAMINOPHEN TAB 500 MG TAB PO STA (00:19)
[2023-04-11 00:43] LABS: Basophils # (A) 0.1 k/uL (0-0.2); Basophils % (A) 1 %; Eosinophils # (A) 0.2 k/uL (0-0.7); Eosinophils % (A) 1 %; HCT 35.9 % (34.0-46.0); HGB 12.5 gm/dL (11.4-16.0); Lymphocytes # (A) 2.4 k/uL (1.0-4.8); Lymphocytes % (A) 13 %; MCH 29.3 pg (25.0-35.0); MCHC 34.7 g/dL (31.0-37.0); MCV 84.4 fL (80.0-100.0); Mean Platelet Volume 7.5; Monocytes # (A) 0.8 k/uL (0-1.0); Monocytes % (A) 4 %; Neutrophils # (A) 15.4 k/uL (1.3-7.7); Neutrophils % (A) 81 %; Platelet Count 315 k/uL (150-450); RBC 4.25 m/uL (3.80-5.40); RDW 14.2 % (11.5-15.5)
[2023-04-11 00:52] LABS: ALT 15 U/L (4-34); AST 18 U/L (14-36); African American GFR (CKD) >90 (>60 ml/min/1.73 sqM); Blood Urea Nitrogen 9 mg/dL (7-17); LDH 160 U/L (120-246); Non-African American GFR(CKD) >90 (>60 ml/min/1.73 sqM); Uric Acid 3.2 mg/dL (3.7-7.4)
[2023-04-11 00:57] LABS: Creatinine,Urine Random 84.1 mg/dL; Protein/Creatinine Ratio,Urine 0.119
[2023-04-11 00:58] LABS: Creatinine,Urine Random 85.6 mg/dL
[2023-04-11 01:58] VITALS: BP 153/98; PULSE 117; RESP 16; TEMP 98.3
--- NOTE | 2023-04-11 08:03 | P.MSEPDOC ---
Presenting Problems - Arrival Data Date of Arrival on Unit: 04/10/23 Time of Arrival on Unit: 23:03 Mode of Transport: Ambulatory - Complaint OB-Reason for Admission/Chief Complaint: Acute Nausea/Vomiting, Headache, Elevated Blood Pressure Comment: Headache, N/V for past 2 days. Epigastric pain on occasion. Medical History - Information : 3 Para: 1 Term: 1 : 0 Abortions: Spontaneous or Elective: 1 Number of Living Children: 1 - Gestational Age Gestational Age by ADEEL (wks/days): 20 Weeks and 1 Days - History Complications: Prior Comment: pt has history of Preeclampsia with previous Review of Systems - Review of Systems Constitutional: No problems Breast: No problems ENT: No problems Cardiovascular: No problems Respiratory: No problems Gastrointestinal: No problems Genitourinary: No problems Musculoskeletal: No problems Neurological: No problems Skin: No problems Vital Signs - Temperature Temperature: 98.3 F Temperature Source: Oral - Pulse Right Sitting Pulse Rate: 117 Pulse Assessment Method: Automatic Cuff - Respirations Respiratory Rate: 16 Oxygen Delivery Method: Room Air O2 Sat by Pulse Oximetry: 99 - Blood Pressure Right Arm Sitting Blood Pressure: 153/98 Blood Pressure Mean: 116 Blood Pressure Source: Automatic Cuff Medical Screen Scoring - Cervical Exam Membranes: Intact - Uterine Contractions Resting: Soft to palpation Physician Notification - Physician Notified Physician Notified Date: 04/11/23 Physician Notified Time: 23:54 Physician: Ivelisse Gallardo New Order Received: Yes (PIH labs, U/A ordered. Pt may be discharged home if PIH labs are WNL) - Notification Comment Comment: Pt is to follow up with her doctor in [place] this week. Pt blood pressure upon D/C was 130/65 pulse 96. A one time dose Tylenol 1000mg PO given to pt. Maternal Triage Index - Maternal Triage Index Presenting for scheduled procedure w/no complaint: No - Stat/Priority 1 Stat Priority 1: No - Urgent/Priority 2 Urgent Priority 2: Yes Provider Notified: Ivelisse Gallardo Provider Notified Time: 23:54 Criteria Met for Priority 2: 153/98, headache, nausea and vomiting the past 2 days. Pt is DOM gets care in [place]. Disposition - Disposition OB Disposition: Discharge to home, Written follow up instructions reviewed Discharge Date: 04/11/23 Discharge Time: 01:20 I agree with the RN Medical Screening Exam: Yes Physician's MSE Comment: I have neither seen nor examined the patient Case reviewed; plan agreed upon as documented in EMR&OBIX.: Yes Diagnosis: MATERNAL CARE FOR PROBLEM, UNSP, SECOND * DO NOT USE *
== END 2023-04-11 01:20 | disposition home or self-care (01) ==
LOC: FBPOP 23:03
PROVIDERS: ATTEND Obstetrics & Gynecology
DX: O21.9 Vomiting of pregnancy, unspecified (principal); O99.891 Other specified diseases and conditions complicating pregnancy; R51.9 Headache, unspecified; R10.13 Epigastric pain; R03.0 Elevated blood-pressure reading, without diagnosis of hypertension; Z3A.20 20 weeks gestation of pregnancy
CPT/HCPCS: 36415; 82570; 84156; 82565; 83615; 84450; 84460; 84520; 84550; 85025; 81003; G0463; 99215

== ENCOUNTER 2023-05-17 09:43 | Outpatient (CLI) | payer OTHER ==
[2023-05-17 10:26] LABS: Appearance,Urine Clear (Clear); Bilirubin,Urine Negative (Negative); Blood,Urine Negative (Negative); Color,Urine Yellow; Glucose,Urine (UA) Negative (Negative); Ketones,Urine 1+ (Negative); Leukocyte Esterase,Urine Negative (Negative); Nitrite,Urine Negative (Negative); Protein,Urine Trace (Negative); Specific Gravity,Urine 1.023 (1.001-1.035); Urobilinogen,Urine <2.0 mg/dL (<2.0)
[2023-05-17] MEDS: LACTATED RINGERS 1,000 ML IV SCH ×2 (10:28→11:58)
[2023-05-17 10:39] LABS: Basophils % (A) 0 %; Eosinophils # (A) 0.1 k/uL (0-0.7); Eosinophils % (A) 1 %; HCT 33.2 % (34.0-46.0); HGB 11.7 gm/dL (11.4-16.0); Lymphocytes # (A) 0.4 k/uL (1.0-4.8); Lymphocytes % (A) 2 %; MCH 29.9 pg (25.0-35.0); MCHC 35.2 g/dL (31.0-37.0); MCV 85.1 fL (80.0-100.0); Mean Platelet Volume 7.8; Monocytes # (A) 0.5 k/uL (0-1.0); Monocytes % (A) 3 %; Neutrophils # (A) 14.8 k/uL (1.3-7.7); Neutrophils % (A) 93 %; Platelet Count 295 k/uL (150-450); RBC 3.91 m/uL (3.80-5.40); RDW 14.1 % (11.5-15.5); WBC 15.9 k/uL (3.8-10.6)
[2023-05-17] MEDS ORDERED: OSELTAMIVIR 75 MG CAP PO STA (11:23)
[2023-05-17 12:16] VITALS: BP 135/77; PULSE 123; RESP 18; TEMP 98
--- NOTE | 2023-05-17 16:04 | P.MSEPDOC ---
Presenting Problems - Arrival Data Date of Arrival on Unit: 05/17/23 Time of Arrival on Unit: 09:43 Mode of Transport: Ambulatory - Complaint OB-Reason for Admission/Chief Complaint: Acute Nausea/Vomiting, Headache Comment: Pt presents to triage c/o n/v/d since 199. Pt states son has influenza A. Medical History - Information : 3 Para: 1 Abortions: Spontaneous or Elective: 1 Number of Living Children: 1 - Gestational Age Gestational Age by ADEEL (wks/days): 25 Weeks and 2 Days - History Complications: Prior Review of Systems - Review of Systems Constitutional: No problems Breast: No problems ENT: Cough Cardiovascular: No problems Respiratory: No problems Gastrointestinal: Diarrhea Genitourinary: No problems Musculoskeletal: No problems Neurological: No problems Skin: No problems Vital Signs - Temperature Temperature: 98 F Temperature Source: Temporal Artery Scan - Pulse Right Sitting Brachial Pulse Rate: 123 Pulse Assessment Method: Pulse Oximetry - Respirations Respiratory Rate: 18 Oxygen Delivery Method: Room Air O2 Sat by Pulse Oximetry: 97 - Blood Pressure Right Arm Sitting Blood Pressure: 135/77 Blood Pressure Mean: 96 Blood Pressure Source: Automatic Cuff Medical Screen Scoring - Assessment - Baby A Baseline FHR: 155 Heart Rate - NICHD Category: Category I (Normal) Physician Notification - Physician Notified Physician Notified Date: 05/17/23 Physician Notified Time: 10:04 Physician: Anuja Baez Order Received: Yes - Notification Comment Comment: 1004: Zaida c\Dr. Baez, advsd , 25 07/27, arrived to triage c/o n/v/d since 199. Pts son has Influenza A. Pt states GUAJARDO, resolved c\tylenol, cramping/back pain. No activity on TOCO, ab soft and nontender, FHR appropriate for GA. Order 4-plex swab, LR bolus, CBC, UA and zofran if pt requests. 1128:Zaida c\pamela Calderon of pts positive Influenza A and increased WBC. Pt states she has chronically elevated WBCs. Rec'd order to administered one dose of Tamiflu and a script will be called into [facility]. Maternal Triage Index - Non-Urgent/Priority 4 Non-Urgent Priority 4: Yes Criteria Met for Priority 4: N/V/D Disposition - Disposition OB Disposition: Discharge to home, Written follow up instructions reviewed Discharge Date: 05/17/23 Discharge Time: 11:45 I agree with the RN Medical Screening Exam: Yes Case reviewed; plan agreed upon as documented in EMR&OBIX.: Yes Diagnosis: INFLUENZA DUE TO IDENT NOVEL INFLUENZA A VIRUS W GI MANIFEST
== END 2023-05-17 11:45 | disposition home or self-care (01) ==
LOC: FBPOP 09:43
PROVIDERS: ATTEND Obstetrics & Gynecology
DX: O98.512 Other viral diseases complicating pregnancy, second trimester (principal); Z3A.25 25 weeks gestation of pregnancy
CPT/HCPCS: 96360; 36415; 85025; 81003; 87636; G0463; 99214

== ENCOUNTER 2023-07-19 20:39 | Outpatient (CLI) | payer OTHER ==
[2023-07-20 03:13] VITALS: BP 144/89; PULSE 106; RESP 17; TEMP 97
--- NOTE | 2023-09-20 08:20 | P.MSEPDOC ---
Presenting Problems - Arrival Data Date of Arrival on Unit: 07/19/23 Time of Arrival on Unit: 20:39 Mode of Transport: Ambulatory - Complaint OB-Reason for Admission/Chief Complaint: Possible Onset of Labor Comment: Pt presents to triage with c/o cramping that she thinks could be contx. Pt states it has been occurring all day and rates pain 4 out of 10 Medical History - Information : 3 Para: 1 Term: 1 : 0 Abortions: Spontaneous or Elective: 1 Number of Living Children: 1 - Gestational Age Gestational Age by ADEEL (wks/days): 34 Weeks and 1 Days Review of Systems - Review of Systems Constitutional: No problems Breast: No problems ENT: No problems Cardiovascular: No problems Respiratory: No problems Gastrointestinal: No problems Genitourinary: No problems Musculoskeletal: No problems Neurological: No problems Skin: No problems Vital Signs - Temperature Temperature: 97.0 F Temperature Source: Temporal Artery Scan - Pulse Pulse Oximetery Pulse Rate: 106 Pulse Assessment Method: Pulse Oximetry - Respirations Respiratory Rate: 17 Oxygen Delivery Method: Room Air O2 Sat by Pulse Oximetry: 98 - Blood Pressure Right Arm Blood Pressure: 144/89 Blood Pressure Mean: 107 Blood Pressure Source: Automatic Cuff Medical Screen Scoring - Uterine Contractions Intensity: Mild Resting: Soft to palpation - Assessment - Baby A Baseline FHR: 140 Heart Rate - NICHD Category: Category I (Normal) NST: Reactive Physician Notification - Physician Notified Physician Notified Date: 07/19/23 Physician Notified Time: 21:48 Physician: Stella Adams Order Received: Yes - Notification Comment Comment: RN spoke with Dr. Adams regarding DOM pt who presented to triage with c/o cramping that she thinks could be contx. Pt states it has been occurring all day and rates pain 4 out of 10. Reported maternal VS and pt taking procardia daily, reactive NST, have only traced two contx while on monitor, abdomen soft to palpation, and pt does not appear to be uncomfortable. Reported pt has presented to triage numerous times this . RN can discharge pt home but ask if pt plans to deliver here instead of with her own OB. If pt states she plans to deliver here, RN to leave note for siebel developer to obtain pt's records. Maternal Triage Index - Maternal Triage Index Presenting for scheduled procedure w/no complaint: No - Stat/Priority 1 Stat Priority 1: No - Urgent/Priority 2 Urgent Priority 2: No - Prompt/Priority 3 Prompt Priority 3: No - Non-Urgent/Priority 4 Non-Urgent Priority 4: Yes Criteria Met for Priority 4: Non-urgent symptoms - common discomforts of Disposition - Disposition OB Disposition: Discharge to home, Written follow up instructions reviewed Discharge Date: 07/20/23 Discharge Time: 22:07 I agree with the RN Medical Screening Exam: Yes Case reviewed; plan agreed upon as documented in EMR&OBIX.: Yes Diagnosis: PRIMARY INADEQUATE CONTRACTIONS
== END 2023-07-19 22:07 | disposition home or self-care (01) ==
LOC: FBPOP 20:39
PROVIDERS: ATTEND Obstetrics & Gynecology
DX: Z53.9 Procedure and treatment not carried out, unspecified reason (principal)
CPT/HCPCS: 59025; G0463; 99213

== ENCOUNTER 2024-11-01 11:32 | Outpatient (CLI) | payer OTHER ==
[2024-11-01 12:32] LABS: Appearance,Urine Clear (Clear); Bilirubin,Urine Negative (Negative); Blood,Urine Negative (Negative); Color,Urine Colorless; Glucose,Urine (UA) Negative (Negative); Ketones,Urine Negative (Negative); Leukocyte Esterase,Urine Negative (Negative); Nitrite,Urine Negative (Negative); Protein,Urine Negative (Negative); Specific Gravity,Urine 1.006 (1.001-1.035); Urobilinogen,Urine <2.0 mg/dL (<2.0)
[2024-11-01 12:50] LABS: Basophils # (A) 0.04 10*3/uL (0.00-0.10); Basophils % (A) 0.3 %; Eosinophils # (A) 0.12 10*3/uL (0.04-0.35); Eosinophils % (A) 0.9 %; HCT 29.3 % (37.2-46.3); HGB 10.2 g/dL (12.0-15.0); Lymphocytes % (A) 15.4 %; MCH 27.7 pg (27.0-32.0); MCHC 34.8 g/dL (32.0-37.0); MCV 79.6 fL (80.0-97.0); Mean Platelet Volume 9.9 fL (9.5-12.2); Monocytes # (A) 0.75 10*3/uL (0.20-1.00); Monocytes % (A) 5.8 %; Neutrophils # (A) 9.97 10*3/uL (1.80-7.70); Platelet Count 289 10*3/uL (140-440); RBC 3.68 10*6/uL (4.10-5.20); WBC 12.96 10*3/uL (4.50-10.00)
[2024-11-01 13:03] LABS: ALT 13 U/L (4-34); AST 18 U/L (14-36); African American GFR (CKD) >90 (>60 ml/min/1.73 sqM); Blood Urea Nitrogen 7 mg/dL (7-17); LDH 154 U/L (120-246); Non-African American GFR(CKD) >90 (>60 ml/min/1.73 sqM); Uric Acid 4.1 mg/dL (3.7-7.4)
[2024-11-01] MEDS: ACETAMINOPHEN TAB 500 MG TAB PO STA (14:04)
[2024-11-01 16:02] VITALS: BP 168/97; PULSE 86; RESP 17; TEMP 97
[2024-11-01 18:47] LABS: Creatinine,Urine Random 37.6 mg/dL (28.0-217.0); Protein/Creatinine Ratio,Urine 0.202 Ratio
--- NOTE | 2024-11-30 13:29 | P.MSEPDOC ---
Presenting Problems - Arrival Data Date of Arrival on Unit: 11/01/24 Time of Arrival on Unit: 11:32 Mode of Transport: Ambulatory - Complaint OB-Reason for Admission/Chief Complaint: Elevated Blood Pressure Comment: pt presents to triage for elevated bp's at home, 160's/100's per patient, having headaches, n/v, dizzines, fatigue, spots in vision in the last few days Medical History - Information : 4 Para: 2 Term: 1 : 1 Abortions: Spontaneous or Elective: 1 Number of Living Children: 2 - Gestational Age Gestational Age by ADEEL (wks/days): 29 Weeks and 4 Days - History Complications: Prior Review of Systems - Review of Systems Constitutional: No problems Breast: No problems ENT: No problems Cardiovascular: No problems Respiratory: No problems Gastrointestinal: No problems Genitourinary: No problems Musculoskeletal: No problems Neurological: No problems Skin: No problems Vital Signs - Temperature Temperature: 97.0 F Temperature Source: Axillary - Pulse Right Brachial Pulse Rate: 86 Pulse Assessment Method: Automatic Cuff - Respirations Respiratory Rate: 17 O2 Sat by Pulse Oximetry: 98 - Blood Pressure Right Arm Blood Pressure: 168/97 Blood Pressure Mean: 120 Blood Pressure Source: Automatic Cuff Medical Screen Scoring - Uterine Contractions Intensity: Mild Resting: Soft to palpation - Assessment - Baby A Baseline FHR: 135 Heart Rate - NICHD Category: Category I (Normal) NST: Reactive Physician Notification - Physician Notified Physician Notified Date: 11/01/24 Physician Notified Time: 12:00 Physician: Ivelisse Gallardo New Order Received: Yes - Notification Comment Comment: all labs normal, still awaiting results of PCR, machine is down, other labs are all wnl, bp's down again, instructed to follow up in office on Tuesday at scheduled appt, encouraged to maybe discuss taking labetolol 200 mg bid, will call pt back of PCR is elevated Maternal Triage Index - Maternal Triage Index Presenting for scheduled procedure w/no complaint: No - Stat/Priority 1 Stat Priority 1: No - Urgent/Priority 2 Urgent Priority 2: Yes Provider Notified: Ivelisse Gallardo Provider Notified Time: 12:00 Criteria Met for Priority 2: pt presents to triage for elevated bp's at home, 160's/100's per patient, having headaches, n/v, dizzines, fatigue, spots in vision in the last few days Disposition - Disposition OB Disposition: Triage, Discharge to home, Written follow up instructions reviewed I agree with the RN Medical Screening Exam: Yes Physician's MSE Comment: I have neither seen nor examined the patient Case reviewed; plan agreed upon as documented in EMR&OBIX.: Yes Diagnosis: MATERNAL CARE FOR PROBLEM, UNSP, THIRD * DO NOT USE *
== END 2024-11-01 15:35 | disposition home or self-care (01) ==
LOC: FBPOP 11:32
PROVIDERS: ATTEND Obstetrics & Gynecology
DX: O35.9XX0 Maternal care for (suspected) fetal abnormality and damage, unspecified, not applicable or unspecified (principal); O13.2 Gestational [pregnancy-induced] hypertension without significant proteinuria, second trimester; Z3A.29 29 weeks gestation of pregnancy
CPT/HCPCS: 59025; 36415; 82570; 84156; 82565; 83615; 84450; 84460; 84520; 84550; 85025; 81003; G0463; 99215